=== PATIENT | male | born 1995 | race Caucasian/White ===

== ENCOUNTER 2019-03-25 19:53 | Emergency (ER) | payer OTHER ==
[2019-03-25] MEDS ORDERED: Naproxen TAB* 250 MG PO ONE (20:20)
[2019-03-25] MEDS ORDERED: Famotidine TAB* 20 MG PO ONE ×2 (20:20→23:10)
--- NOTE | 2019-03-25 23:08 | ED ---
HPI Chest Pain - HPI Summary HPI Summary: This patient is a 23 year old M presenting to [facility] with a chief complaint of waxing and waning left anterior chest pain described as pressure since 03/22/19, upon waking. Pain has been and aching since. Pain worsened with exertion. Patient reports cocaine use the night prior to pain. Denies current radiation to jaws, arms, shoulders, and back. Pain rated 3/10 in severity. Patient denies n/v, abdominal pain, diaphoresis, and SOB. Denies PMHx. - History of Current Complaint Chief Complaint: EDChestPainROMI Time Seen by Provider: 03/25/19 22:58 Hx Obtained From: Patient Onset/Duration: Started Days Ago Timing: Constant Pain Intensity: 3 Pain Scale Used: 0-10 Numeric Chest Pain Location: Left Anterior Chest Pain Radiates: No Character: Dull/Aching Aggravating Factor(s): Exertion Alleviating Factor(s): Nothing Associated Signs and Symptoms: Negative: Shortness of Breath, Diaphoresis, Nausea, Vomiting - Allergy/Home Medications Allergies/Adverse Reactions: Allergies Allergy/AdvReac Type Severity Reaction Status Date / Time No Known Allergies Allergy Verified 03/25/19 20:15 PMH/Surg Hx/FS Hx/Imm Hx Respiratory History: Denies: Hx Asthma Opthamlomology History: Denies: Hx Legally Blind EENT History: Denies: Hx Deafness - Surgical History Surgery Procedure, Year, and Place: none reported. Infectious Disease History: No Infectious Disease History: Denies: Traveled Outside the [place] in Last 30 Days - Family History Known Family History: Positive: Cardiac Disease - father high cholesterol - Social History Occupation: Student Alcohol Use: Weekly Substance Use Type: Reports: Cocaine Smoking Status (MU): Never Smoked Tobacco Review of Systems Negative: Skin Diaphoresis Positive: Chest Pain Negative: Shortness Of Breath Negative: Abdominal Pain, Vomiting, Nausea All Other Systems Reviewed And Are Negative: Yes Physical Exam - Summary Physical Exam Summary: Appearance: well appearing, no pain distress Skin: warm, dry, reflects adequate perfusion Head/face: normal Eyes: EOMI, RENATA ENT: mucous membranes moist Neck: supple, non-tender Respiratory: CTA, breath sounds present Cardiovascular: RRR, pulses symmetrical Abdomen: non-tender, soft Bowel Sounds: present Musculoskeletal: normal, strength/ROM intact Neuro: normal, sensory motor intact, A&Ox3 Triage Information Reviewed: Yes Vital Signs On Initial Exam: Initial Vitals Temp Pulse Resp BP Pulse Ox 98.9 F 74 18 138/73 97 03/25/19 20:15 03/25/19 20:15 03/25/19 20:15 03/25/19 20:15 03/25/19 20:15 Vital Signs Reviewed: Yes Diagnostics - Vital Signs Vital Signs Temp Pulse Resp BP Pulse Ox 03/25/19 20:15 98.9 F 74 18 138/73 97 - Laboratory Lab Statement: Any lab studies that have been ordered have been reviewed, and results considered in the medical decision making process. - Radiology CXR Radiology Interpretation Completed By: ED Physician Summary of Radiographic Findings: Negative. - EKG 2023 Cardiac Rate: NL - 67 BPM EKG Rhythm: Sinus Rhythm ST Segment: Normal Summary of EKG Findings: Normal [place]. Normal Interval. Normal ST 2300 Cardiac Rate: NL - 73 BPM EKG Rhythm: Sinus Rhythm ST Segment: Normal Summary of EKG Findings: Normal [place]. Normal Interval. Normal ST Re-Evaluation - Re-Evaluation 1 Re-Evaluation Time: 12:05 Change: Improved Comment: patient's pain is resolved. Chest Pain Course/Dx - Course Course Of Treatment: Nurse's notes reviewed. Patient with mild left-sided chest discomfort that is constant in nature. Troponin is 0 and EKG 2 is negative. He had some relief with GI treatments. He is also anxious given his recent cocaine use several days ago. Treat symptomatically, discontinue cocaine and follow-up with primary care physician at the [facility]. - Chest Pain Differential Diagnosis/HQI/PQRI: ACS, Chest Wall, GI Disease, Lower Respiratory Infection, Pulmonary Edema - Diagnoses Provider Diagnoses: Cocaine abuse, GERD (gastroesophageal reflux disease), Chest wall pain Discharge - Sign-Out/Discharge Documenting (check all that apply): Patient Departure - discharge Patient Received Moderate/Deep Sedation with Procedure: No - Discharge Plan Condition: Improved Disposition: HOME Prescriptions: Famotidine TAB* [Pepcid 20 MG TAB*] 20 mg PO BID #20 tab Sucralfate TAB* [Carafate*] 1 gm PO QID #40 tab Patient Education Materials: Cocaine Abuse (ED), Gastroesophageal Reflux Disease (ED) Referrals: [facility] [Z.BUSINESS, APPLICATION, OTHER] - Additional Instructions: Call first thing in the morning to schedule prompt follow-up with the [facility]. Do not use cocaine. He is prescribed medications and Tylenol as needed for discomfort. Return with recurring chest pain, worse, difficulty breathing, new symptoms or other concerns. - Billing Disposition and Condition Condition: IMPROVED Disposition: Home - Attestation Statements Document Initiated by Noé: Yes Documenting Scribe: Isabel Pillai Provider For Whom Noé is Documenting (Include Credential): Willie Mustafa MD Scribe Attestation: IIsabel, scribed for Willie Mustafa MD on 03/26/19 at 0332. Scribe Documentation Reviewed: Yes Provider Attestation: The documentation as recorded by the Isabel pack accurately reflects the service I personally performed and the decisions made by me, Willie Mustafa MD Status of Scribe Document: Viewed
[2019-03-25] MEDS ORDERED: Sucralfate TAB* 1 GM PO ONE (23:11)
[2019-03-25] MEDS ORDERED: Al Hydrox/Mg Hydrox/Simet LIQ* 30 ML UDC PO ONE (23:11)
[2019-03-25] MEDS ORDERED: Pantoprazole TAB * 40 MG TAB PO ONE (23:11)
[2019-03-26 01:19] VITALS: BP 127/79
== END 2019-03-26 00:50 | disposition home or self-care (01) ==
LOC: ED 19:53
DX: K21.9 Gastro-esophageal reflux disease without esophagitis (principal); R07.89 Other chest pain; F14.10 Cocaine abuse, uncomplicated
CPT/HCPCS: 36415; 71046; 84484; 93005; 99283; A9270-GY